=== PATIENT | female | born 1975 ===

== ENCOUNTER 2022-02-01 09:14 | Day surgery (SDC) | payer OTHER ==
[~2022-02-01] VITALS: Ht 154.9 cm; Wt 63.5 kg
[2022-02-01 09:59] LABS: HCG,QUAL RESULT NEGATIVE (NEGATIVE)
[2022-02-01] MEDS ORDERED: LR 1,000 ML IV.SOLN IV ONE (11:16)
[2022-02-01] MEDS ORDERED: SEVOFLURANE 15 MIN GAS INH ONE (11:16)
[2022-02-01] MEDS ORDERED: ONDANSETRON HCL 4 MG/2 ML VIAL ONE (11:16)
[2022-02-01] MEDS ORDERED: LIDOCAINE JELLY 5 ML TUBE ONE (11:16)
[2022-02-01] MEDS ORDERED: MIDAZOLAM HCL 2 MG/2 ML VIAL (VERSED) ONE (11:16)
[2022-02-01] MEDS ORDERED: fentaNYL CITRATE/PF 100 MCG/2 ML AMP ONE (11:16)
[2022-02-01] MEDS ORDERED: PROPOFOL 200MG/ 20ML VIAL (DIPRIVAN) IV ONE (11:16)
[2022-02-01] MEDS ORDERED: GLYCOPYRROLATE 0.2 MG/ML VIAL ONE (11:16)
[2022-02-01] MEDS ORDERED: DEXAMETHASONE SOD PHOSPHATE 4 MG/ML VIAL ONE (11:16)
[2022-02-01] MEDS ORDERED: METOCLOPRAMIDE HCL 10 MG/2 ML VIAL ONE (11:16)
[2022-02-01 14:24] VITALS: BP_SYST 117
== END 2022-02-01 14:05 | disposition home or self-care (01) ==
LOC: SDS 09:14 → SMU 09:15 → SDS 14:05
PROVIDERS: ATTEND Obstetrics & Gynecology
DX: N93.9 Abnormal uterine and vaginal bleeding, unspecified (principal); N85.6 Intrauterine synechiae; R10.30 Lower abdominal pain, unspecified; Z79.899 Other long term (current) drug therapy; Z20.822 Contact with and (suspected) exposure to COVID-19
CPT/HCPCS: 93005; 58558; 84703; 86886; 86900; 86901; 36415; 88305; 87426; J1100; J3490; J2765; J3465; J2405; J2704; J3010; J7120; C1819